=== PATIENT | male | born 1960 | race Asian ===

== ENCOUNTER 2017-12-17 12:52 | Emergency (ER) | payer OTHER ==
[~2017-12-17] VITALS: Ht 188 cm; Wt 111.1 kg
[2017-12-17] MEDS ORDERED: NORCO 5-325 TA1 EACH (13:28)
[2017-12-17] MEDS ORDERED: NEURONTIN300 MG (13:29)
[2017-12-17] MEDS ORDERED: ROBAXIN-750750 MG (13:29)
[2017-12-17] MEDS ORDERED: PERCOCET 5-3251 EACH PO (16:35)
[2017-12-17] MEDS ORDERED: CELECOXIB200 MG PO (16:35)
== END 2017-12-17 16:43 | disposition home or self-care (01) ==
LOC: ER 12:52
DX: M54.5 Low back pain (principal)